=== PATIENT | female | born 2000 | race Caucasian/White ===

== ENCOUNTER 2019-12-14 12:16 | Emergency (ER) | payer BC ==
[~2019-12-14] VITALS: Ht 162.6 cm; Wt 50.9 kg
[2019-12-14] MEDS ORDERED: DICYCLOMINE 20 MG/2 ML VIAL. IM STA (14:12)
[2019-12-14] MEDS ORDERED: IV NORMAL SALINE 1000ML BAG 1,000 ML IV ONE (14:15)
--- NOTE | 2019-12-14 14:20 | PHYS DOC ---
Past Medical History Past Medical History: Other Additional Past Medical Histor: IBS Past Surgical History: No Surgical History Smoking Status: Never Smoker Alcohol Use: None Adult General Chief Complaint Chief Complaint: ABDOMINAL PAIN HPI HPI Patient is a 19 year old female who presents with lower abdominal pain that started at 5 PM yesterday. The patient's been having these episodes for years. The patient states she was diagnosed IBS when she was age 11 but she does not believe that she has IBS. The patient took Advil 2 AM which helped her pain but now her pain 7 out of 10 in severity. The patient denies any nausea. Denies any fevers. Review of Systems Review of Systems Constitutional: Denies fever or chills [] Eyes: Denies change in visual acuity, redness, or eye pain [] HENT: Denies nasal congestion or sore throat [] Respiratory: Denies cough or shortness of breath [] Cardiovascular: No additional information not addressed in HPI [] GI: Reports abdominal pain, denies nausea, vomiting, bloody stools or diarrhea [] : Denies dysuria or hematuria [] Musculoskeletal: Denies back pain or joint pain [] Integument: Denies rash or skin lesions [] Neurologic: Denies headache, focal weakness or sensory changes [] Endocrine: Denies polyuria or polydipsia [] Complete systems were reviewed and found to be within normal limits, except as documented in this note. Current Medications Current Medications Current Medications Medications (Trade) Dose Ordered Sig/Corina Start Time Stop Time Status Last Admin Dose Admin Dicyclomine HCl (Bentyl) 20 mg 1X STAT 12/14/19 14:12 12/14/19 14:15 DC 12/14/19 14:25 20 MG Info (CONTRAST GIVEN -- Rx MONITORING) 1 each PRN DAILY PRN 12/14/19 15:00 12/16/19 14:59 Iohexol (Omnipaque 240 Mg/ml) 30 ml 1X ONCE 12/14/19 15:00 12/14/19 15:01 DC 12/14/19 15:00 30 ML Iohexol (Omnipaque 300 Mg/ml) 75 ml 1X ONCE 12/14/19 15:00 12/14/19 15:01 DC 12/14/19 15:30 75 ML Sodium Chloride 1,000 ml @ 1,000 mls/hr 1X ONCE 12/14/19 14:15 12/14/19 15:14 DC 12/14/19 14:25 1,000 MLS/HR Allergies Allergies Allergies Coded Allergies Type Severity Reaction Last Updated Verified Sulfa (Sulfonamide Antibiotics) Adverse Reaction Intermediate 12/14/19 Yes latex Adverse Reaction Intermediate 12/14/19 Yes Physical Exam Physical Exam Constitutional: Well developed, well nourished, no acute distress, non-toxic appearance. [] HENT: Normocephalic, atraumatic, bilateral external ears normal, oropharynx moist, no oral exudates, nose normal. [] Eyes: PERRLA, EOMI, conjunctiva normal, no discharge. [] Neck: Normal range of motion, no tenderness, supple, no stridor. [] Cardiovascular:Heart rate regular rhythm, no murmur [] Lungs & Thorax: Bilateral breath sounds clear to auscultation [] Abdomen: Bowel sounds normal, soft, diffuse lower abdominal tenderness, no masses, no pulsatile masses. [] Neurologic: Alert and oriented X 3, normal motor function, normal sensory function, no focal deficits noted. [] Psychologic: Affect normal, judgement normal, mood normal. [] Current Patient Data Vital Signs Vital Signs Date Time Temp Pulse Resp B/P (MAP) Pulse Ox O2 Delivery O2 Flow Rate FiO2 12/14/19 13:15 98.0 75 20 155/71 (99) 100 Room Air 98.0 Lab Values Laboratory Tests Test 12/14/19 13:25 12/14/19 13:27 12/14/19 14:10 Urine Collection Type Unknown Urine Color Yellow Urine Clarity Clear Urine pH 5.5 Urine Specific [place] >=1.030 Urine Protein Negative mg/dL (NEG-TRACE) Urine Glucose (UA) Negative mg/dL (NEG) Urine Ketones (Stick) Negative mg/dL (NEG) Urine Blood Negative (NEG) Urine Nitrite Negative (NEG) Urine Bilirubin Negative (NEG) Urine Urobilinogen Dipstick 0.2 mg/dL (0.2 mg/dL) Urine Leukocyte Esterase Negative (NEG) Urine RBC 1-2 /HPF (0-2) Urine WBC 5-10 /HPF (0-4) Urine Squamous Epithelial Cells Mod /LPF Urine Bacteria Few /HPF (0-FEW) Urine Mucus Marked /LPF Urine Opiates Screen Neg (NEG) Urine Methadone Screen Neg (NEG) Urine Barbiturates Neg (NEG) Urine Phencyclidine Screen Neg (NEG) Urine Amphetamine/Methamphetamine Neg (NEG) Urine Benzodiazepines Screen Neg (NEG) Urine Cocaine Screen Neg (NEG) Urine Cannabinoids Screen Neg (NEG) Urine Ethyl Alcohol Neg (NEG) POC Urine HCG, Qualitative Hcg negative (Negative) White Blood Count 7.6 x10^3/uL (4.0-11.0) Red Blood Count 4.95 x10^6/uL (3.50-5.40) Hemoglobin 14.9 g/dL (12.0-15.5) Hematocrit 43.5 % (36.0-47.0) Mean Corpuscular Volume 88 fL (79-100) Mean Corpuscular Hemoglobin 30 pg (25-35) Mean Corpuscular Hemoglobin Concent 34 g/dL (31-37) Red Cell Distribution Width 13.2 % (11.5-14.5) Platelet Count 200 x10^3/uL (140-400) Neutrophils (%) (Auto) 60 % (31-73) Lymphocytes (%) (Auto) 31 % (24-48) Monocytes (%) (Auto) 6 % (0-9) Eosinophils (%) (Auto) 3 % (0-3) Basophils (%) (Auto) 1 % (0-3) Neutrophils # (Auto) 4.5 x10^3/uL (1.8-7.7) Lymphocytes # (Auto) 2.3 x10^3/uL (1.0-4.8) Monocytes # (Auto) 0.5 x10^3/uL (0.0-1.1) Eosinophils # (Auto) 0.2 x10^3/uL (0.0-0.7) Basophils # (Auto) 0.0 x10^3/uL (0.0-0.2) Sodium Level 143 mmol/L (136-145) Potassium Level 4.0 mmol/L (3.5-5.1) Chloride Level 106 mmol/L (98-107) Carbon Dioxide Level 27 mmol/L (21-32) Anion Gap 10 (6-14) Blood Urea Nitrogen 14 mg/dL (7-20) Creatinine 0.8 mg/dL (0.6-1.0) Estimated GFR (Cockcroft-Gault) 91.4 BUN/Creatinine Ratio 18 (6-20) Glucose Level 83 mg/dL (70-99) Calcium Level 9.0 mg/dL (8.5-10.1) Magnesium Level 2.0 mg/dL (1.8-2.4) Total Bilirubin 1.3 mg/dL (0.2-1.0) H Aspartate Amino Transferase (AST) 10 U/L (15-37) L Alanine Aminotransferase (ALT) 13 U/L (14-59) L Alkaline Phosphatase 61 U/L (46-116) Total Protein 6.6 g/dL (6.4-8.2) Albumin 3.9 g/dL (3.4-5.0) Albumin/Globulin Ratio 1.4 (1.0-1.7) Lipase 266 U/L (73-393) Laboratory Tests 12/14/19 14:10 Laboratory Tests 12/14/19 14:10 EKG EKG [] Radiology/Procedures Radiology/Procedures [facility] [address] [place], [place] [id number] IMAGING REPORT Signed PATIENT: NESTOR MIGUEL ACCOUNT: [id number] : 2000 LOCATION: ER AGE: 19 SEX: F EXAM STATUS: REG ER ORD. PHYSICIAN: CURLY ESTRELLA APRN REASON: lower abdominal pain; Pelvic pain PROCEDURE: PELVIS ULTRASOUND PELVIS ULTRASOUND History: Lower abdominal pain. Pelvic pain. Comparison: None. Technique: Grayscale and color Doppler imaging of the pelvis was performed using transabdominal technique. Patient refused transvaginal imaging. Findings: The uterus measures 7.6 x 4.7 x 4.0 cm in length. Uterus has an unremarkable appearance. The endometrial stripe measures 1.96 cm. Degraded evaluation of the ovaries due to overlying bowel gas. Right ovary measures 2.2 x 2.5 x 2.0 cm. Left ovary measures 2.2 x 2.0 x 1.6 cm. Normal Doppler flow. No adnexal masses are seen. No free fluid. IMPRESSION: 1. Thickened endometrium. Recommend further clinical evaluation and ultrasound follow-up. Electronically signed by: Jose Lindsay DO (12/14/2019 3:41 PM) [id number] DICTATED and SIGNED BY: JOSE LINDSAY DO DATE: 12/14/19 1541 [][facility] [address] [place], [place] [id number] IMAGING REPORT Signed PATIENT: NESTOR MIGUEL ACCOUNT: [id number] : 2000 LOCATION: ER AGE: 19 SEX: F EXAM STATUS: REG ER ORD. PHYSICIAN: CURLY ESTRELLA APRN REASON: lower abdominal pain PROCEDURE: CT ABD PELV W/ORAL&IV CONTRAST CT abdomen pelvis with contrast. HISTORY: Lower abdominal pain CT scan of the abdomen pelvis was done using 75 mL Omnipaque 300 contrast. Lung bases are clear. There is no effusion. Liver is normal in appearance. There is no calcified gallstone. Spleen and adrenal glands are unremarkable. Pancreas is normal. There is no mass or hydronephrosis in the kidneys. A ureteral calculus is not identified. Bowel pattern is normal. There is a trace of fluid in the pelvis without other ascites. Appendix is normal. Uterus and ovaries are unremarkable. IMPRESSION: 1. Nonspecific trace of fluid in the pelvis. 2. Uterus and ovaries within normal limits. 3. Normal appendix. 4. No bowel obstruction. 5. No other acute finding. PQRS Compliance Statement: One or more of the following individualized dose reduction techniques were utilized for this examination: 1. Automated exposure control 2. Adjustment of the mA and/or kV according to patient size 3. Use of iterative reconstruction technique Electronically signed by: Alexadnre Kaiser MD (12/14/2019 3:55 PM) [id number] DICTATED and SIGNED BY: ALEXANDRE KAISER MD DATE: 12/14/19 1555 Course & Med Decision Making Course & Med Decision Making Pertinent Labs and Imaging studies reviewed. (See chart for details) Will get CT scan with oral and IV contrast. Will also get labs, and UA. The patient PCP requested an pelvic ultrasound and so will get that test as well. Labs and imaging are unremarkable, with the exception of thickened endometrium. Will have follow up with [facility]. Dragon Disclaimer Dragon Disclaimer This electronic medical record was generated, in whole or in part, using a voice recognition dictation system. Departure Departure Impression: Primary Impression: Abdominal pain Disposition: HOME, SELF-CARE Condition: STABLE Referrals: UNKNOWN PCP NAME (PCP) LUDMILA FELIPE MD Patient Instructions: Abdominal Pain (Nonspecific) Additional Instructions: Thank you for visiting [facility]. We appreciate you trusting us with your care. If any additional problems come up don't hesitate to return to visit us. Please follow up with your primary care provider so they can plan additional care if needed and know about the problem that you had. If symptoms worsen come back to the Emergency Department. Any concerning symptoms that start such as chest pain, shortness of air, weakness or numbness on one side of the body, running high fevers or any other concerning symptoms return to the ER. Please fill your medications at any pharmacy and follow the prescription instructions. Scripts Dicyclomine Hcl (DICYCLOMINE HCL) 10 Mg Capsule 1 CAP PO PRN Q6HRS PRN for PAIN, #20 CAP 0 Refills Prov: CURLY ESTRELLA APRN 12/14/19 Problem Qualifiers Primary Impression: Abdominal pain Abdominal location: lower abdomen, unspecified Qualified Codes: R10.30 - Lower abdominal pain, unspecified CURLY ESTRELLA APRN Dec 14, 2019 14:20
[2019-12-14 14:24] LABS: BILIRUBIN,URINE NEGATIVE (NEG); CLARITY,URINE CLEAR; COLOR,URINE YELLOW; NITRITE,URINE NEGATIVE (NEG); PH,URINE 5.5; PROTEIN,URINE NEGATIVE (NEG-TRACE); UROBILINOGEN,URINE 0.2 mg/dL (0.2 mg/dL)
[2019-12-14 14:27] LABS: BASO % 1 % (0-3); EOS # 0.2 x10^3/uL (0.0-0.7); EOS % 3 % (0-3); HEMATOCRIT 43.5 % (36.0-47.0); HEMOGLOBIN 14.9 g/dL (12.0-15.5); LYMPH # 2.3 x10^3/uL (1.0-4.8); LYMPH % 31 % (24-48); MEAN CORPUSCULAR HEMOGLOBIN 30 pg (25-35); MEAN CORPUSCULAR HGB CONC 34 g/dL (31-37); MEAN CORPUSCULAR VOLUME 88 fL (79-100); MONO # 0.5 x10^3/uL (0.0-1.1); MONO % 6 % (0-9); NEUT # 4.5 x10^3/uL (1.8-7.7); NEUT % 60 % (31-73); PLATELET COUNT 200 x10^3/uL (140-400); RED BLOOD COUNT 4.95 x10^6/uL (3.50-5.40); RED CELL DISTRIBUTION WIDTH 13.2 % (11.5-14.5); WHITE BLOOD COUNT 7.6 x10^3/uL (4.0-11.0)
[2019-12-14 14:34] LABS: CREATININE 0.8 mg/dL (0.6-1.0); GFR 91.4
[2019-12-14 14:39] LABS: ALBUMIN 3.9 g/dL (3.4-5.0); ALBUMIN/GLOBULIN RATIO 1.4 (1.0-1.7); TOTAL BILIRUBIN 1.3 mg/dL (0.2-1.0); TOTAL PROTEIN 6.6 g/dL (6.4-8.2)
[2019-12-14 14:50] LABS: SQUAMOUS EPITHELIAL CELL,UR MOD /LPF
[2019-12-14 14:51] LABS: BACTERIA,URINE FEW /HPF (0-FEW)
[2019-12-14 14:54] LABS: BARBITURATES NEG (NEG); BENZODIAZEPINES NEG (NEG); CANNABINOIDS NEG (NEG); COCAINE NEG (NEG); METHADONE NEG (NEG); OPIATES NEG (NEG); PHENCYCLIDINE NEG (NEG)
[2019-12-14 14:55] LABS: AMPHETAMINE/METHAMPHETAMINE NEG (NEG)
[2019-12-14] MEDS ORDERED: CONTRAST GIVEN. MC PRN (15:00)
[2019-12-14] MEDS ORDERED: IOHEXOL 240 MG/ML 50ML VIAL. PO ONE (15:00)
[2019-12-14] MEDS ORDERED: IOHEXOL 300 MG/ML 100ML VIAL. IV ONE (15:00)
--- NOTE | 2019-12-14 15:44 | RAD ---
PELVIS ULTRASOUND History: Lower abdominal pain. Pelvic pain. Comparison: None. Technique: Grayscale and color Doppler imaging of the pelvis was performed using transabdominal technique. Patient refused transvaginal imaging. Findings: The uterus measures 7.6 x 4.7 x 4.0 cm in length. Uterus has an unremarkable appearance. The endometrial stripe measures 1.96 cm. Degraded evaluation of the ovaries due to overlying bowel gas. Right ovary measures 2.2 x 2.5 x 2.0 cm. Left ovary measures 2.2 x 2.0 x 1.6 cm. Normal Doppler flow. No adnexal masses are seen. No free fluid. IMPRESSION: 1. Thickened endometrium. Recommend further clinical evaluation and ultrasound follow-up. Electronically signed by: Jose Lindsay DO (12/14/2019 3:41 PM) [id number]
--- NOTE | 2019-12-14 15:59 | RAD ---
CT abdomen pelvis with contrast. HISTORY: Lower abdominal pain CT scan of the abdomen pelvis was done using 75 mL Omnipaque 300 contrast. Lung bases are clear. There is no effusion. Liver is normal in appearance. There is no calcified gallstone. Spleen and adrenal glands are unremarkable. Pancreas is normal. There is no mass or hydronephrosis in the kidneys. A ureteral calculus is not identified. Bowel pattern is normal. There is a trace of fluid in the pelvis without other ascites. Appendix is normal. Uterus and ovaries are unremarkable. IMPRESSION: 1. Nonspecific trace of fluid in the pelvis. 2. Uterus and ovaries within normal limits. 3. Normal appendix. 4. No bowel obstruction. 5. No other acute finding. PQRS Compliance Statement: One or more of the following individualized dose reduction techniques were utilized for this examination: 1. Automated exposure control 2. Adjustment of the mA and/or kV according to patient size 3. Use of iterative reconstruction technique Electronically signed by: Alexandre Kaiser MD (12/14/2019 3:55 PM) [id number]
[2019-12-14 16:15] VITALS: BP 112/82
[2019-12-14] MEDS ORDERED: DICY10CA3 PO (16:15)
== END 2019-12-14 16:30 | disposition home or self-care (01) ==
LOC: ER 12:16
DX: R10.30 Lower abdominal pain, unspecified (principal); K58.9 Irritable bowel syndrome, unspecified; Z88.2 Allergy status to sulfonamides; Z91.040 Latex allergy status
CPT/HCPCS: 36415; 74177; 76856; 80053; 80307; 81001; 81025; 83690; 83735; 85025; 87086; 96372; 99285; J0500; J7030; Q9966; Q9967